=== PATIENT | female | born 1990 | race Caucasian/White ===

== ENCOUNTER → 2020-09-15 09:51 | Outpatient (BNVA) | payer OTHER, SELFPAY | PROVIDERS: PCP Family Medicine; Visit Provider Family Medicine | DX: Z20.2 Contact with and (suspected) exposure to infections with a predominantly sexual mode of transmission (principal); Z11.59 Encounter for screening for other viral diseases; R53.83 Other fatigue; Z11.4 Encounter for screening for human immunodeficiency virus [HIV]; Z91.89 Other specified personal risk factors, not elsewhere classified; S36.69XA Other injury of rectum, initial encounter; K59.04 Chronic idiopathic constipation; Z87.898 Personal history of other specified conditions; F99 Mental disorder, not otherwise specified; F51.05 Insomnia due to other mental disorder; F33.2 Major depressive disorder, recurrent severe without psychotic features; F41.9 Anxiety disorder, unspecified; M94.0 Chondrocostal junction syndrome [Tietze]; F32.9 Major depressive disorder, single episode, unspecified | CPT/HCPCS: 84443; 86706; 86803; 87340; 87491; 87591; 87661; 87806 ==

== ENCOUNTER 2020-09-29 09:19 | Outpatient (CLI) | payer OTHER, SELFPAY ==
--- NOTE | 2020-09-29 09:27 | MM_ITS ---
WS: [id number] BILATERAL DIGITAL DIAGNOSTIC MAMMOGRAM MAMMOGRAPHY WITH CAD CLINICAL INFORMATION: Z87.898 - Personal history of other specified conditions HISTORY: Personal history of autologous fat breast injections COMPARISON: None. TECHNIQUE: Bilateral CC, MLO, and ML views. FINDINGS: Scattered fibroglandular densities bilaterally. Multiple bilateral palpable markers corresponding to prior sites of fat injection per patient. Multiple Calcified lesions largest in the right breast mid and posterior depth. Largest calcified lesion upper outer right breast adjacent palpable marker measu ring 2.9 x 1.9 CM. Additional smaller calcified lesion in the mid right breast measuring 1.0 CM. Palpable marker inferior right breast with no corresponding abnormality. Additional palpable marker i nferior left breast without corresponding mammographic abnormality. Ultrasound is pending. Bilateral clustered calcifications. ULTRASOUND BREAST BILATERAL TECHNIQUE: Ultrasound bilateral breast focused area of concern. CLINICAL INFORMATION: Z87.898 - Personal history of other specified conditions COMPARISON: None. FINDINGS: ULTRASOUND RIGHT BREAST Heterogeneous complex lesion at the 12:00 position measuring 3.6 x 2.3 x 1.8 cm corresponding to fat injection. Hypoechoic solid lesion at the 6 clock position 3 cm from the nipple measuring 0.9 x 0.6 x 0.6 CM Is indeterminate. This lesion is taller than wide. Incidental cyst at the 7:00 position 2 cm from the nipple measuring 5 mm. ULTRASOUND LEFT BREAST Incidental simple cyst at the 6 clock position measuring 6 mm. Additional incidental simple cyst at the 7:00 position near the areola measuring 6.5 mm. Additional incidental cyst at the 9:00 position near the areola measuring 6.3 mm. MM/[place] [id number] IMPRESSION: BI-RADS: 4-Suspicious Finding-Biopsy Should Be Considered FOLLOW UP: US Guided Biopsy Recommended RECOMMEND ULTRASOUND GUIDED BIOPSY OF THE SOLID HYPOECHOIC TALLER THAN WIDE LES ION AT THE 6:00 POSITION RIGHT BREAST 3 CM FROM THE NIPPLE
== END 2020-09-29 09:20 | disposition home or self-care (01) ==
LOC: RADSHAW 09:20
PROVIDERS: PCP Family Medicine; Visit Provider Family Medicine
DX: Z87.898 Personal history of other specified conditions (principal); N64.9 Disorder of breast, unspecified
CPT/HCPCS: 76642; 77066

== ENCOUNTER 2020-10-15 12:26 | Outpatient (CLI) | payer OTHER, SELFPAY ==
--- NOTE | 2020-10-15 12:35 | US_ITS ---
WS: [id number] ULTRASOUND-GUIDED RIGHT BREAST BIOPSY CLINICAL INFORMATION: abnormal mammo, Right breast mass FINDINGS: The procedure including risks, benefits, and complications were discussed with the patient who agreed to proceed. Using sterile technique patient was prepped and draped in the usual sterile fashion. Aft er 1% lidocaine utilizing real-time ultrasound guidance 5 14-gauge cores were obtained of the right b reast lesion at the 6 o'clock position. No biopsy marker was placed. No immediate complications. Pathology demonstrates Breast, right, 6 o'clock, 3 cm from nipple , biopsy: -Benign breast tissue with fibro-adenomatoid change. -No malignancy identified. US/[place] [id number] IMPRESSION: 1. Uncomplicated ultrasound-guided RIGHT breast biopsy. 2. The pathology demonstrates benign breast tissue. No malignancy identified. BI-RADS: 2-Benign FOLLOW UP: Age 40 Recommend annual screening mammography age 40
== END 2020-10-15 12:27 | disposition home or self-care (01) ==
LOC: RAD 12:31
PROVIDERS: PCP Family Medicine; Visit Provider Family Medicine
DX: N63.15 Unspecified lump in the right breast, overlapping quadrants (principal)
CPT/HCPCS: 19083; 88305

== ENCOUNTER → 2020-11-02 09:27 | Outpatient (BNVA) | payer OTHER, SELFPAY | PROVIDERS: PCP Family Medicine; Visit Provider Psychiatry & Neurology Psychiatry | DX: F33.3 Major depressive disorder, recurrent, severe with psychotic symptoms (principal); F43.10 Post-traumatic stress disorder, unspecified | CPT/HCPCS: 90792 ==

== ENCOUNTER → 2020-11-30 15:53 | Outpatient (BNVA) | payer OTHER, SELFPAY | PROVIDERS: PCP Family Medicine; Visit Provider Psychiatry & Neurology Psychiatry | DX: F33.3 Major depressive disorder, recurrent, severe with psychotic symptoms (principal); F43.10 Post-traumatic stress disorder, unspecified | CPT/HCPCS: 99214 ==

== ENCOUNTER → 2020-12-27 14:26 | Outpatient (BNVA) | payer OTHER, SELFPAY | PROVIDERS: PCP Family Medicine; Visit Provider Nurse Practitioner Family | DX: M79.641 Pain in right hand (principal) | CPT/HCPCS: 73130 ==

== ENCOUNTER → 2021-01-20 14:45 | Outpatient (BNVA) | payer OTHER, SELFPAY | PROVIDERS: PCP Family Medicine; Visit Provider Psychiatry & Neurology Psychiatry | DX: F43.10 Post-traumatic stress disorder, unspecified (principal); F33.3 Major depressive disorder, recurrent, severe with psychotic symptoms | CPT/HCPCS: 99214 ==

== ENCOUNTER → 2021-02-15 16:52 | Outpatient (BNVA) | payer OTHER, SELFPAY | PROVIDERS: PCP Family Medicine; Visit Provider Nurse Practitioner Family | DX: A64 Unspecified sexually transmitted disease (principal) | CPT/HCPCS: 87491; 87591; 87661 ==

== ENCOUNTER → 2021-03-03 15:19 | Outpatient (BNVA) | payer OTHER, SELFPAY | PROVIDERS: PCP Family Medicine; Visit Provider Psychiatry & Neurology Psychiatry | DX: F43.10 Post-traumatic stress disorder, unspecified (principal); F33.3 Major depressive disorder, recurrent, severe with psychotic symptoms | CPT/HCPCS: 99214 ==

== ENCOUNTER → 2021-03-18 11:14 | Outpatient (BNVA) | payer OTHER, SELFPAY | PROVIDERS: PCP Family Medicine; Visit Provider Psychiatry & Neurology Psychiatry | DX: F43.10 Post-traumatic stress disorder, unspecified (principal); F33.3 Major depressive disorder, recurrent, severe with psychotic symptoms | CPT/HCPCS: 99214 ==

== ENCOUNTER → 2021-03-25 14:00 | Outpatient (BNVA) | payer OTHER, SELFPAY | PROVIDERS: PCP Family Medicine; Referring Provider Surgery; Visit Provider Surgery | DX: Z01.818 Encounter for other preprocedural examination (principal) | CPT/HCPCS: 87635 ==

== ENCOUNTER 2021-03-29 05:57 | Day surgery (SDC) | payer OTHER, SELFPAY ==
[2021-03-28 13:19] VITALS: BMI 29.0
[2021-03-29 06:17] VITALS: BP 114/57; PULSE 62; RESP 18; TEMP 36.7; O2SAT 100
--- NOTE | 2021-03-29 06:22 | W.PM.OPSUD ---
Surgery/Procedure H&P Update DATE OF PROCEDURE: March 29, 2021 DATE H&P PERFORMED: 03/03/21 H&P UPDATE INFORMATION: I have reviewed H&P completed within last 30 days, I have examined patient prior to procedure and No changes to prior documentation PREOP DIAGNOSIS: Right breast masses PRIMARY INDICATION FOR PROCEDURE: The same PLANNED PROCEDURE: Operation Date: 03/29/21 07:10 Proposed Procedures p Excision of right breast masses 24386 N63.10(Right) - Aram Antunez MD
[2021-03-29] MEDS: sodium chloride 0.9% 1,000 ML 30 ML IV (06:52)
[2021-03-29] MEDS: acetaminophen 1,000 MG/100 ML PIGGYBACK 400 MG IV (06:52)
[2021-03-29] MEDS: clindamycin 900 MG/50 ML PREMIX 100 MG IV (06:57)
[2021-03-29 07:01] LABS: OR HCG Qualitative Urine Negative (Negative)
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
[2021-03-29] MEDS: lidocaine 2% INJ 20 mL INJECTION (07:27)
--- NOTE | 2021-03-29 07:50 | P.OP_ITS ---
Operative Report Date of procedure: March 29, 2021 Pre-op Diagnosis: Right breast masses Post-op diagnosis: same Post-op Findings: 2 x 2 centimeter right lower breast mass likely fat necrosis 4 x 4 centimeter right upper breast mass fat globules in sheath and a pseudocapsule with purulent-like fluid but no odor cultures were obtained. Procedure Done: Excision of right breast masses Specimens removed/disposition: 1. Right lower breast mass 2 x 2 centimeter 2. Right upper breast mass 4 x 4 centimeter 3. Swabs from right upper breast mass wound bed for cultures and sensitivities Surgeon: Aram Antunez Corn Chip Maker: Surgical techsamantha Portillo and Jamilah certified surgical technician student Circulating nurse Sindhu Anesthesia: General (LMA manager clinical research Hernán) Estimated blood loss (mL): 5 IV fluids (mL): 400 Condition: stable Disposition: same day Brief History: Symptomatic right breast masses. Procedure: After identifying the patient holding area, the correct site and side was marked before the procedure by myself in the presence of female director global market research nursing staff, patient was then taken to the operative suite, was placed in first in supine position, LMA was placed by the anesthesia provider ,Timeout was done verifying the patient's name/date of /planned procedure and destination after the procedure, all were in agreement. SCDs confirmed to be functioning, preoperative antibiotics administered per protocol, and beta patel protocol was confirmed Prep and drape of the right pectoral region was done under the usual sterile technique. Local anesthesia 2% lidocaine was infiltrated site of the incision, first I started by the right lower breast lump skin incision was created in a transverse fashion dissection carried all the way to the subcutaneous and breast tissues and a 2 x 2 centimeter fatty tumor was dissected and excised in its entirety wi th short sutures marked superior and long sutures marked lateral.Thorough irrigation hemostasis was achieved followed by closure by deep subdermal 4-0 Vicryl. Then 4-0 Monocryl. Attention now was deviated towards the right breast lump were transverse skin incision was created and dissection was carried in the same fashion and a fat globules-like structure 4 x 4 centimeter was enucleated yet there was presence of purulent-like discharge likely sterile fluid were swabs were obtained for cultures and sensitivities. The mass was ensheathed and the pseudocapsule that was all excised and sent for permanent pathology. Copious and thorough irrigation of the wound was achieved followed by hemostasis done deep subdermal 3-0 Vicryl, followed by 4-0 Monocryl. Specimens were passed to the circulating nurse for permanent pathology apart from the swabs for microbiology. Both incisions had Mastisol and Steri-Strips followed by dry dressing.And sports bra. Count was completed at the end of the procedure Patient was taken to the recovery room in stable condition I was present for the whole entire procedure
[2021-03-29 08:16] VITALS: BP 91/58; PULSE 63; RESP 25; TEMP 36.6; O2SAT 95
[2021-03-29 08:20] VITALS: BP 96/42; PULSE 73; RESP 19; O2SAT 100
--- NOTE | 2021-03-29 08:21 | P.PCN_ITS ---
Documented by User: Hernán Vega CRNA 03/29/21 08:21 PACU note PACU note: VSS, Good respiratory effort, report to ENVIRONMENTAL SAMPLER Post-Anesthesia Exam: awake
[2021-03-29 08:25] VITALS: BP 101/59; PULSE 52; RESP 17; O2SAT 100
[2021-03-29 08:30] VITALS: BP 124/80; PULSE 54; RESP 18; TEMP 37.7; O2SAT 99
[2021-03-29 08:35] VITALS: BP 124/80; PULSE 55; RESP 18; TEMP 37.7; O2SAT 100
--- NOTE | 2021-03-29 08:42 | SUR.PHASEI ---
0814PT TO PACU AWAKES TO VOICE PT SHIVERING WARM BLANKETS X 4 TO PT RT BREAST SITES X 2 D/I SUPPORT BRA IN PLACE.
--- NOTE | 2021-03-29 11:55 | ANE.PACU2 ---
Inpatient post-anesthesia follow up: Airway intact: Yes Vital signs: Temperature 100 F Pulse Rate 55 Respiratory Rate 18 Blood Pressure 124/80 Pulse Oximetry 100 Oxygen Delivery Me thod Room Air Oxygen Flow Rate 8 Fraction of Inspir ed Oxygen Hydration adequate: Yes Nausea and vomiting: No Pain level: 2 Mental status: Baseline
== END 2021-03-29 09:40 | disposition home or self-care (01) ==
PROVIDERS: PCP Family Medicine; Visit Provider Surgery
PROC: (CPT 19301; principal; 2021-03-29 07:00)
DX: N63.10 Unspecified lump in the right breast, unspecified quadrant (principal); J45.909 Unspecified asthma, uncomplicated; F41.9 Anxiety disorder, unspecified; F32.9 Major depressive disorder, single episode, unspecified
CPT/HCPCS: 19301; 84703; 87070; 87075; 87205; 88305; 96365; J1100; J2405; J2704; J3010; J3490; J7030

== ENCOUNTER → 2021-04-08 11:10 | Outpatient (BNVA) | payer OTHER, SELFPAY | PROVIDERS: PCP Family Medicine; Visit Provider Psychiatry & Neurology Psychiatry | DX: F33.3 Major depressive disorder, recurrent, severe with psychotic symptoms (principal); F43.10 Post-traumatic stress disorder, unspecified | CPT/HCPCS: 99214 ==

== ENCOUNTER → 2021-05-09 14:20 | Outpatient (BNVA) | payer OTHER, SELFPAY | PROVIDERS: PCP Family Medicine; Visit Provider Obstetrics & Gynecology | DX: N89.8 Other specified noninflammatory disorders of vagina (principal); Z12.4 Encounter for screening for malignant neoplasm of cervix; N76.0 Acute vaginitis; B96.89 Other specified bacterial agents as the cause of diseases classified elsewhere | CPT/HCPCS: 87491; 87591; 87624; 87661 ==

== ENCOUNTER → 2021-05-13 10:47 | Outpatient (BNVA) | payer OTHER, SELFPAY | PROVIDERS: PCP Family Medicine; Visit Provider Psychiatry & Neurology Psychiatry | DX: F33.3 Major depressive disorder, recurrent, severe with psychotic symptoms (principal); F43.10 Post-traumatic stress disorder, unspecified | CPT/HCPCS: 99214 ==

== ENCOUNTER → 2021-05-19 11:22 | Outpatient (BNVA) | payer OTHER, SELFPAY | PROVIDERS: PCP Family Medicine; Visit Provider Obstetrics & Gynecology | DX: N97.9 Female infertility, unspecified (principal); N85.2 Hypertrophy of uterus; N83.202 Unspecified ovarian cyst, left side | CPT/HCPCS: 76830 ==

== ENCOUNTER → 2021-05-31 16:03 | Outpatient (BNVA) | payer OTHER, SELFPAY | PROVIDERS: PCP Family Medicine; Visit Provider Obstetrics & Gynecology | DX: N97.9 Female infertility, unspecified (principal) | CPT/HCPCS: 82670; 83001; 83520 ==

== ENCOUNTER → 2021-06-03 12:32 | Outpatient (BNVA) | payer OTHER, SELFPAY | PROVIDERS: PCP Family Medicine; Visit Provider Psychiatry & Neurology Psychiatry | DX: F33.3 Major depressive disorder, recurrent, severe with psychotic symptoms (principal); F43.10 Post-traumatic stress disorder, unspecified | CPT/HCPCS: 99214 ==

== ENCOUNTER → 2021-06-20 13:05 | Outpatient (BNVA) | payer OTHER, SELFPAY | PROVIDERS: PCP Family Medicine; Visit Provider Nurse Practitioner Family | DX: Z32.01 Encounter for pregnancy test, result positive (principal); E34.9 Endocrine disorder, unspecified | CPT/HCPCS: 84702 ==

== ENCOUNTER → 2021-06-30 13:15 | Outpatient (BNVA) | payer OTHER, SELFPAY | PROVIDERS: PCP Family Medicine; Visit Provider Nurse Practitioner Women's Health | DX: Z11.3 Encounter for screening for infections with a predominantly sexual mode of transmission (principal); N92.6 Irregular menstruation, unspecified | CPT/HCPCS: 81025; 84702; 86592; 86803; 87340; 87806 ==

== ENCOUNTER → 2021-07-01 12:25 | Outpatient (BNVA) | payer OTHER, SELFPAY | PROVIDERS: PCP Family Medicine; Visit Provider Psychiatry & Neurology Psychiatry | DX: F33.3 Major depressive disorder, recurrent, severe with psychotic symptoms (principal); F43.10 Post-traumatic stress disorder, unspecified | CPT/HCPCS: 99214 ==

== ENCOUNTER → 2021-08-09 15:22 | Outpatient (BNVA) | payer OTHER, SELFPAY | PROVIDERS: PCP Family Medicine; Visit Provider Family Medicine | DX: R07.9 Chest pain, unspecified (principal); M54.12 Radiculopathy, cervical region; M94.0 Chondrocostal junction syndrome [Tietze]; M54.16 Radiculopathy, lumbar region | CPT/HCPCS: 72040; 72072; 72100 ==

== ENCOUNTER → 2021-09-20 15:55 | Outpatient (BNVA) | payer OTHER, SELFPAY | PROVIDERS: PCP Family Medicine; Visit Provider Family Medicine | DX: M94.0 Chondrocostal junction syndrome [Tietze] (principal) | CPT/HCPCS: 71046 ==

== ENCOUNTER 2022-01-11 15:17 | Outpatient (CLI) | payer OTHER, SELFPAY ==
--- NOTE | 2022-01-11 15:27 | MM_ITS ---
WS: [id number] BILATERAL 3D TOMOSYNTHESIS DIGITAL SCREENING MAMMOGRAPHY WITH CAD CLINICAL INFORMATION: SCREENING. Previous history of fat injections. HISTORY: Screening mammogram. Axillary nodules/soreness COMPARISON: September 29, 2020 TECHNIQUE: Bilateral CC and MLO views. FINDINGS: Scattered fibroglandular densities bilaterally. Incidental cyst RIGHT breast. A few incidental puncta te calcifications. No suspicious focal mass, asymmetry, calcifications, or architectural distortion. No evidence of malignancy. MM/[place] [id number] IMPRESSION: BI-RADS: 2-Benign FOLLOW UP: 1 Year Follow-up Recommend return to annual screening mammography.
== END 2022-01-11 15:18 | disposition home or self-care (01) ==
PROVIDERS: Visit Provider Nurse Practitioner Adult Health
DX: Z12.31 Encounter for screening mammogram for malignant neoplasm of breast (principal)
CPT/HCPCS: 77063; 77067

== ENCOUNTER 2022-07-31 14:29 | Outpatient (CLI) | payer OTHER, SELFPAY ==
--- NOTE | 2022-07-31 15:16 | MM_ITS ---
WS: [id number] RIGHT 3D TOMOSYNTHESIS DIGITAL MAMMOGRAPHY WITH CAD CLINICAL INFORMATION: RT BREAST TENDER NODULES COMPARISON: 2020 and 2021 TECHNIQUE: 3 views of the right breast were obtained. FINDINGS: The right breast is composed of heterogeneous fibroglandular density tissue, which can limit the dete ction of small underlying mass lesions. Multiple palpable markers. Dense parenchymal tissue upper out er RIGHT breast is unchanged. A few oil cysts. Ultrasound of the palpable areas described below. ULTRASOUND BREAST RIGHT TECHNIQUE: Ultrasound right breast focused area of concern. CLINICAL INFORMATION: RT BREAST TENDER NODULES FINDINGS: Ultrasound RIGHT breast near a palpable concern at 6:00; canal 11:00. Additional ultrasound near the areola. Numerous underlying simple and slightly complex cysts are noted. Largest cysts at the 6:00 po sition measuring 8 mm, 7:00 position measuring 8 mm, and 11:00 position measuring 9 mm. No suspicious findings. No lesions to target for biopsy. MM/[place] [id number] IMPRESSION: BI-RADS: 2-Benign FOLLOW UP: Age 40 Recommend annual screening mammography age 40.
== END 2022-07-31 14:30 | disposition home or self-care (01) ==
LOC: RAD 14:47
PROVIDERS: Visit Provider Nurse Practitioner Adult Health
DX: N63.25 Unspecified lump in the left breast, overlapping quadrants (principal)
CPT/HCPCS: 76642; 77061; G0279